=== PATIENT | male | born 1995 | race Hispanic/Latino ===

== ENCOUNTER 2021-04-27 16:02 | Emergency (ER) | payer OTHER ==
[~2021-04-27] VITALS: Ht 160 cm; Wt 113.4 kg
[2021-04-27 16:05] VITALS: BP 134/73
[2021-04-27 16:06] VITALS: BP 134/73
== END 2021-04-27 17:00 | disposition left against medical advice (07) ==
LOC: EDH 16:02
DX: R10.9 Unspecified abdominal pain (principal); Z53.21 Procedure and treatment not carried out due to patient leaving prior to being seen by health care provider